=== PATIENT | female | born 1975 | race Caucasian/White ===

== ENCOUNTER 2019-04-13 11:43 | Emergency (ER) | payer OTHER ==
--- NOTE | 2019-04-13 12:19 | ER ---
Nurse's Notes [facility] Name: Kelley Saenz Age: 43 yrs Sex: Female : 1975 Arrival Date: 04/13/2019 Time: 11:47 Bed 9 Private MD: Diagnosis: Muscle spasm of back Presentation: 04/13 11:49 Presenting complaint: Patient states: Pain in R shoulder blade since yesterday, worse ph w/ movement, states , " When you push on it it really hurts." Denies N/V/D or SOB. Transition of care: patient was not received from another setting of care. Onset of symptoms was April 13, 2019. Risk Assessment: Do you want to hurt yourself or someone else? Patient reports no desire to harm self or others. Initial Sepsis Screen: Does the patient meet any 2 criteria? No. Patient's initial sepsis screen is negative. Does the patient have a suspected source of infection? No. Patient's initial sepsis screen is negative. Care prior to arrival: None. 11:49 Method Of Arrival: Ambulatory ph 11:49 Acuity: MARAH 4 ph Triage Assessment: 13:10 General: Appears in no apparent distress. Behavior is calm, cooperative. 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 - Social history:: Smoking status: unknown. - Ebola Screening: : Patient negative for fever greater than or equal to 101.5 degrees Fahrenheit, and additional compatible Ebola Virus Disease symptoms Patient denies exposure to infectious person Patient denies travel to an Ebola-affected area in the 21 days before illness onset No symptoms or risks identified at this time. Screenin:10 Abuse screen: Denies threats or abuse. Denies injuries from another. Nutritional iw screening: No deficits noted. Tuberculosis screening: No symptoms or risk factors identified. Fall Risk None identified. Assessment: 12:50 General: Appears in no apparent distress. Pain: Complains of pain in anterior aspect of iw right shoulder and posterior aspect of right shoulder. Neuro: Level of Consciousness is awake, alert, obeys commands, Oriented to person, place, time, situation. Cardiovascular: Patient's skin is warm and dry. Respiratory: Respiratory effort is even, unlabored. Derm: Skin is intact, is healthy with good turgor. Musculoskeletal: Reports pain in anterior aspect of right shoulder and posterior aspect of right shoulder. Vital Signs: 11:52 BP 133 / 73; Pulse 70; Resp 18; Temp 97.8; Pulse Ox 98% on R/A; Weight 117.93 kg; ph Height 5 ft. 8 in. (172.72 cm); Pain 4/10; 11:52 Body Mass Index 39.53 (117.93 kg, 172.72 cm) ph ED Course: 11:47 Patient arrived in ED. tw3 11:51 Triage completed. ph 11:57 [facility] Hale [facility] pm1 11:57 Jason Smith MD is Attending Physician. pm1 12:22 Carla Amin RN is Primary Nurse. iw 12:50 Arm band placed on. iw 12:50 Patient has correct armband on for positive identification. iw 13:12 No provider procedures requiring assistance completed. Patient did not have IV access iw during this emergency room visit. Administered Medications: 12:49 Drug: SOLU-Medrol 125 mg Route: IM; Site: right deltoid; iw 12:49 Drug: TORadol 60 mg Route: IM; Site: left deltoid; iw Outcome: 12:18 Discharge ordered by MD. pm1 13:12 Discharged to home ambulatory, with family. iw 13:12 Condition: good 13:12 Discharge instructions given to patient, family, Instructed on discharge instructions, follow up and referral plans. medication usage, Demonstrated understanding of instructions, follow-up care, medications, Prescriptions given X 3. 13:13 Patient left the ED. iw Signatures: Carla Amin RN RN Sadaf Knight RN RN Harry Hale NP DIRECTOR OF [employer]COLLEGI[employer]THLET[employer] pm1 Fariba Riddle tw3
--- NOTE | 2019-04-13 12:19 | EDPHYS ---
Physician Documentation [facility] Name: Kelley Saenz Age: 43 yrs Sex: Female : 1975 Arrival Date: 04/13/2019 Time: 11:47 Bed 9 Private MD: ED Physician Jason Smith HPI: 04/13 12:18 This 43 yrs old Female presents to ER via Ambulatory with complaints of Right pm1 sided back pain. 12:18 The patient presents with pain that is acute. The symptoms are located in the right pm1 scapular area. Onset: The symptoms/episode began/occurred yesterday. The pain does not radiate. Associated signs and symptoms: Pertinent negatives: abdominal pain, chest pain, dysuria, fever, nausea, numbness, tingling, shortness of breath. The problem was sustained without known cause. Modifying factors: The patient symptoms are alleviated by with massage yesterday, the patient symptoms are aggravated by movement of right arm. Severity of symptoms: in the emergency department the symptoms are actually worse. The patient has not experienced similar symptoms in the past. The patient has not recently seen a physician. 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 - Social history:: Smoking status: unknown. - Ebola Screening: : Patient negative for fever greater than or equal to 101.5 degrees Fahrenheit, and additional compatible Ebola Virus Disease symptoms Patient denies exposure to infectious person Patient denies travel to an Ebola-affected area in the 21 days before illness onset No symptoms or risks identified at this time. ROS: 12:18 Constitutional: Negative for fever, chills, and weight loss, Eyes: Negative for injury, pm1 pain, redness, and discharge, ENT: Negative for injury, pain, and discharge, Neck: Negative for injury, pain, and swelling, Cardiovascular: Negative for chest pain, palpitations, and edema, Respiratory: Negative for shortness of breath, cough, wheezing, and pleuritic chest pain, Abdomen/GI: Negative for abdominal pain, nausea, vomiting, diarrhea, and constipation, : Negative for injury, bleeding, discharge, and swelling, MS/Extremity: Negative for injury and deformity, Skin: Negative for injury, rash, and discoloration, Neuro: Negative for headache, weakness, numbness, tingling, and seizure. 12:18 Back: Positive for of the right scapular area, pain. Exam: 12:18 Constitutional: This is a well developed, well nourished patient who is awake, alert, pm1 and in no acute distress. Head/Face: Normocephalic, atraumatic. Neck: Trachea midline, no thyromegaly or masses palpated, and no cervical lymphadenopathy. Supple, full range of motion without nuchal rigidity, or vertebral point tenderness. No Meningismus. Chest/axilla: Normal chest wall appearance and motion. Nontender with no deformity. No lesions are appreciated. Cardiovascular: Regular rate and rhythm with a normal S1 and S2. No gallops, murmurs, or rubs. Normal PMI, no JVD. No pulse deficits. Respiratory: Lungs have equal breath sounds bilaterally, clear to auscultation and percussion. No rales, rhonchi or wheezes noted. No increased work of breathing, no retractions or nasal flaring. Abdomen/GI: Soft, non-tender, with normal bowel sounds. No distension or tympany. No guarding or rebound. No evidence of tenderness throughout. 12:18 Skin: Warm, dry with normal turgor. Normal color with no rashes, no lesions, and no evidence of cellulitis. MS/ Extremity: Pulses equal, no cyanosis. Neurovascular intact. Full, normal range of motion. 12:18 Back: pain, of the focal point on right scapular area with palpation and reproduced with movement of right arm towards the back, ROM is normal, painless, normal spinal alignment noted. 12:18 Neuro: Orientation: is normal, Motor: is normal, moves all fours. Vital Signs: 11:52 BP 133 / 73; Pulse 70; Resp 18; Temp 97.8; Pulse Ox 98% on R/A; Weight 117.93 kg; ph Height 5 ft. 8 in. (172.72 cm); Pain 4/10; 11:52 Body Mass Index 39.53 (117.93 kg, 172.72 cm) ph MDM: 12:11 Patient medically screened. pm1 12:16 Data reviewed: vital signs. Data interpreted: Pulse oximetry: on room air is 98 %. pm1 Interpretation: normal. Counseling: I had a detailed discussion with the patient and/or guardian regarding: the historical points, exam findings, and any diagnostic results supporting the discharge/admit diagnosis, the need for outpatient follow up, to return to the emergency department if symptoms worsen or persist or if there are any questions or concerns that arise at home. Administered Medications: 12:49 Drug: SOLU-Medrol 125 mg Route: IM; Site: right deltoid; iw 12:49 Drug: TORadol 60 mg Route: IM; Site: left deltoid; iw Disposition: 04/13/19 12:18 Discharged to Home. Impression: Muscle spasm of back. - Condition is Stable. - Discharge Instructions: Muscle Cramps and Spasms. - Prescriptions for Naprosyn 500 mg Oral Tablet - take 1 tablet by ORAL route 2 times per day take with food; 30 tablet. Cyclobenzaprine 10 mg Oral Tablet - take 1 tablet by ORAL route every 8 hours As needed; 30 tablet. Medrol (Breezy) 4 mg Oral Tablets, Dose Pack - take 1 tablet by ORAL route as directed - follow package instructions; 1 packet. - Medication Reconciliation Form, Thank You Letter, Antibiotic Education, Prescription Opioid Use form. - Follow up: Emergency Department; When: As needed; Reason: Worsening of condition. Follow up: Private Physician; When: 2 - 3 days; Reason: Recheck today's complaints, Continuance of care, Re-evaluation by your physician. - Problem is new. - Symptoms have improved. Addendum: 04/17/2019 20:35 Co-signature as Attending Physician, Jason Smith MD. g s Signatures: Carla Amin, JAMARCUS RN Sadaf Knight RN RN Harry Hale, MANAGER CIVIL MANAGER CIVIL pm1 Jason Smith MD MD Corrections: (The following items were deleted from the chart) 04/13 13:13 12:18 04/13/2019 12:18 Discharged to Home. Impression: Muscle spasm of back. Condition iw is Stable. Forms are Medication Reconciliation Form, Thank You Letter, Antibiotic Education, Prescription Opioid Use. Follow up: Emergency Department; When: As needed; Reason: Worsening of condition. Follow up: Private Physician; When: 2 - 3 days; Reason: Recheck today's complaints, Continuance of care, Re-evaluation by your physician. Problem is new. Symptoms have improved. pm1
[2019-04-13] MEDS ORDERED: METHYLPREDNISOLONE 125 MG INJ ONE (12:55)
[2019-04-13] MEDS ORDERED: KETOROLAC 30 MG/ML INJ ONE (12:55)
[2019-04-13 14:45] VITALS: BP 133/73; TEMP 97.8; O2SAT 98
== END 2019-04-13 13:13 | disposition home or self-care (01) ==
LOC: ER 11:43
DX: M62.830 Muscle spasm of back (principal); Z88.0 Allergy status to penicillin
CPT/HCPCS: 96372; 99283; J2930

== ENCOUNTER 2019-05-06 19:05 | Emergency (ER) | payer OTHER ==
[2019-05-06 20:33] LABS: Absolute Lymphocytes (CBC) 2.9 K/uL (0.7-4.9); Absolute Neutrophil 7.1 K/uL (1.8-8.0); Basophils % 0.9 % (0-1.3); Eosinophils % 2.4 % (0-4.4); Hematocrit 41.4 % (36.0-45.0); Lymphocytes % 25.6 % (15.3-44.8); Monocytes % 9.1 % (3.3-12.3); RBC Red Blood Cell Count 4.63 M/uL (3.86-4.86)
--- NOTE | 2019-05-06 20:38 | RAD REPORT ---
EXAM DESCRIPTION: US - Extremity Venous Uni Ltd - 05/06/2019 7:41 pm CLINICAL HISTORY: Left lower extremity pain and swelling COMPARISON: None. TECHNIQUE: Real-time sonographic evaluation of the left lower extremity deep venous system was perfo rmed. FINDINGS: Normal compressibility, flow augmentation, phasic flow and spontaneous flow are identified in the left lower extremity common femoral, superficial femoral, popliteal and posterior tibial vein s. No intraluminal filling defects seen. IMPRESSION: No DVT in the left lower extremity.
[2019-05-06 20:45] LABS: BUN Blood Urea Nitrogen 9 mg/dL (7-18); Bicarbonate 32 mmol/L (21-32); Glucose Level 84 mg/dL (74-106); Potassium 3.7 mmol/L (3.5-5.1); Sodium Level 141 mmol/L (136-145)
--- NOTE | 2019-05-06 21:06 | EDPHYS ---
Physician Documentation [facility] Name: Kelley Saenz Age: 43 yrs Sex: Female : 1975 Arrival Date: 05/06/2019 Time: 19:09 Bed 13 Private MD: EMELIA Physician Constantin Mendoza HPI: 05/06 19:22 This 43 yrs old Female presents to ER via Ambulatory with complaints of Foot rn swelling calf cramping. 19:22 The patient presents with pain, swelling. The complaints affect the left calf. Onset: rn The symptoms/episode began/occurred 2 week(s) ago. Modifying factors: The symptoms are alleviated by nothing. the symptoms are aggravated by nothing. Severity of symptoms: At their worst the symptoms were mild, in the emergency department the symptoms are unchanged. The patient has not experienced similar symptoms in the past. The patient has been recently seen by a physician:. Reports 2 weeks of left calf cramps, goes ascencion to achilles, no trauma, seen by pcp at start and told was a sprain although no apparent injury, spends a lot of time on her feet at work, only left leg spasms, no change in medication, no risk or hx of DVT. . 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 - Social history:: Smoking status: Patient uses tobacco products, vape. - Ebola Screening: : Patient negative for fever greater than or equal to 101.5 degrees Fahrenheit, and additional compatible Ebola Virus Disease symptoms Patient denies exposure to infectious person Patient denies travel to an Ebola-affected area in the 21 days before illness onset No symptoms or risks identified at this time. - Family history:: not pertinent. - Hospitalizations: : No recent hospitalization is reported. ROS: 19:22 Constitutional: Negative for fever, chills, and weight loss, Eyes: Negative for injury, rn pain, redness, and discharge, Neck: Negative for injury, pain, and swelling, Cardiovascular: Negative for chest pain, palpitations, and edema, Respiratory: Negative for shortness of breath, cough, wheezing, and pleuritic chest pain, Abdomen/GI: Negative for abdominal pain, nausea, vomiting, diarrhea, and constipation, Back: Negative for injury and pain, MS/Extremity: + left calf spasm Skin: Negative for injury, rash, and discoloration, Neuro: Negative for headache, weakness, and seizure. Exam: 19:22 Constitutional: This is a well developed, well nourished patient who is awake, alert, rn and in no acute distress. Respiratory: No increased work of breathing, no retractions or nasal flaring. Speaking full sentences Skin: Warm, dry, and no evidence of cellulitis. MS/ Extremity: Pulses equal, no cyanosis. Neurovascular intact. Full, normal range of motion. Equal circumference. Vital Signs: 19:16 BP 122 / 73; Pulse 85; Resp 17; Temp 98.1(O); Pulse Ox 99% on R/A; Pain 2/10; ed1 20:00 BP 123 / 62; Pulse 74; Resp 16; Pulse Ox 100% on R/A; jb4 21:30 BP 138 / 62; Pulse 74; Resp 16; Pulse Ox 100% on R/A; jb4 MDM: 19:13 Patient medically screened. rn 19:41 Differential diagnosis: tendonitis, lymphedema, venous stasis, arthritis. Data rn reviewed: vital signs, nurses notes, radiologic studies, ultrasound, and as a result, I will. 19:42 ED course: Ultrasound negative for DVT.. rn 21:04 Counseling: I had a detailed discussion with the patient and/or guardian regarding: the rn historical points, exam findings, and any diagnostic results supporting the discharge/admit diagnosis, lab results, radiology results, the need for outpatient follow up, to return to the emergency department if symptoms worsen or persist or if there are any questions or concerns that arise at home. 21:05 ED course: MOst likely nonspecific edema due to being on feet at work, no signs of rn infection, negative u/s, recommend leg elevation and compression stocking, along with pcp f/u. . 05/06 19:21 Order name: CBC with Diff rn 05/06 19:21 Order name: Basic Metabolic Panel; Complete Time: 21: rn 05/06 19:21 Order name: Extremity Venous Uni Ltd US; Complete Time: 21: rn 05/06 19:21 Order name: IV Start; Complete Time: 20: rn 05/06 19:22 Order name: CBC with Automated Diff; Complete Time: 21:04 EDMS Administered Medications: No medications were administered Disposition: 05/06/19 21:05 Discharged to Home. Impression: Edema, unspecified. - Condition is Stable. - Discharge Instructions: Edema, Peripheral Edema. - Medication Reconciliation Form, Thank You Letter, Antibiotic Education, Prescription Opioid Use form. - Follow up: Private Physician; When: As needed; Reason: Recheck today's complaints, Re-evaluation by your physician. - Problem is an ongoing problem. - Symptoms are unchanged. Signatures: Dispatcher [employer] EDMS Constantin Mendoza MD MD rn Riggs, Erika, RN RN ed1 Lex Daly RN RN jb4 Corrections: (The following items were deleted from the chart) 21:39 21:05 05/06/2019 21:05 Discharged to Home. Impression: Edema, unspecified. Condition is jb4 Stable. Forms are Medication Reconciliation Form, Thank You Letter, Antibiotic Education, Prescription Opioid Use. Follow up: Private Physician; When: As needed; Reason: Recheck today's complaints, Re-evaluation by your physician. Problem is an ongoing problem. Symptoms are unchanged. rn
--- NOTE | 2019-05-06 21:06 | ER ---
Nurse's Notes [facility] Name: Kelley Saenz Age: 43 yrs Sex: Female : 1975 Arrival Date: 05/06/2019 Time: 19:09 Bed 13 Private MD: Diagnosis: Edema, unspecified Presentation: 05/06 19:14 Presenting complaint: Patient states: For about 2 weeks now my left foot has been ed1 swelling and I have been having cramps in my calf. Transition of care: patient was not received from another setting of care. Onset of symptoms was April 22, 2019. Risk Assessment: Do you want to hurt yourself or someone else? Patient reports no desire to harm self or others. Initial Sepsis Screen: Does the patient meet any 2 criteria? No. Patient's initial sepsis screen is negative. Does the patient have a suspected source of infection? No. Patient's initial sepsis screen is negative. Care prior to arrival: None. 19:14 Method Of Arrival: Ambulatory ed1 19:14 Acuity: MARAH 3 ed1 Triage Assessment: 19:16 General: Appears in no apparent distress. Behavior is calm, cooperative. Pain: ed1 Complains of pain in left leg Pain currently is 2 out of 10 on a pain scale. Quality of pain is described as crampy. Musculoskeletal: Swelling present in left foot. 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 - Social history:: Smoking status: Patient uses tobacco products, vape. - Ebola Screening: : Patient negative for fever greater than or equal to 101.5 degrees Fahrenheit, and additional compatible Ebola Virus Disease symptoms Patient denies exposure to infectious person Patient denies travel to an Ebola-affected area in the 21 days before illness onset No symptoms or risks identified at this time. - Family history:: not pertinent. - Hospitalizations: : No recent hospitalization is reported. Screenin:20 Abuse screen: Denies threats or abuse. Nutritional screening: No deficits noted. jb4 Tuberculosis screening: No symptoms or risk factors identified. Fall Risk None identified. Assessment: 19:20 General: Appears in no apparent distress. comfortable, Behavior is calm, cooperative, jb4 appropriate for age. Pain: Complains of pain in left leg Pain does not radiate. Pain currently is 4 out of 10 on a pain scale. Quality of pain is described as burning, crampy, Pain began 2 weeks ago Is intermittent. Neuro: Level of Consciousness is awake, alert, obeys commands, Oriented to person, place, time, situation. Cardiovascular: Patient's skin is warm and dry. Respiratory: Airway is patent Respiratory effort is even, unlabored, Respiratory pattern is regular, symmetrical. GI: No signs and/or symptoms were reported involving the gastrointestinal system. : No signs and/or symptoms were reported regarding the genitourinary system. EENT: No signs and/or symptoms were reported regarding the EENT system. Derm: Skin is intact, Skin is pink, warm \T\ dry. Musculoskeletal: Circulation, motion, and sensation intact. Range of motion: intact in all extremities, Reports pain in left calf. 19:28 Reassessment: Pt to Ultrasound. jb4 20:22 Reassessment: Patient appears in no apparent distress at this time. Patient and/or jb4 family updated on plan of care and expected duration. Pain level reassessed. Patient is alert, oriented x 3, equal unlabored respirations, skin warm/dry/pink. 21:30 Reassessment: Patient appears in no apparent distress at this time. Patient and/or jb4 family updated on plan of care and expected duration. Pain level reassessed. Patient is alert, oriented x 3, equal unlabored respirations, skin warm/dry/pink. Vital Signs: 19:16 BP 122 / 73; Pulse 85; Resp 17; Temp 98.1(O); Pulse Ox 99% on R/A; Pain 2/10; ed1 20:00 BP 123 / 62; Pulse 74; Resp 16; Pulse Ox 100% on R/A; jb4 21:30 BP 138 / 62; Pulse 74; Resp 16; Pulse Ox 100% on R/A; jb4 ED Course: 19:09 Patient arrived in ED. es 19:09 Constantin Mendoza MD is Attending Physician. rn 19:11 Lex Daly, RN is Primary Nurse. jb4 19:15 Triage completed. ed1 19:16 Arm band placed on. ed1 19:20 Patient has correct armband on for positive identification. Bed in low position. Call jb4 light in reach. Side rails up X 1. Pulse ox on. NIBP on. 19:20 Missed attempt(s): 22 gauge in right forearm. jb4 19:43 Extremity Venous Uni Ltd US In Process Unspecified. EDMS 20:10 Missed attempt(s): 20 gauge in right antecubital area. Bleeding controlled, band aid jp3 applied, catheter tip intact. 20:15 Initial lab(s) drawn, by me, sent to lab. Inserted saline lock: 22 gauge in left jp3 antecubital area, using aseptic technique. Blood collected. 20:21 CBC with Diff Sent. jp3 20:21 Basic Metabolic Panel Sent. jp3 21:30 No provider procedures requiring assistance completed. IV discontinued, intact, jb4 bleeding controlled. Administered Medications: No medications were administered Outcome: 21:05 Discharge ordered by . rn 21:30 Discharged to home ambulatory, with family. jb4 21:30 Condition: stable 21:30 Discharge instructions given to patient, family, Instructed on discharge instructions, follow up and referral plans. Demonstrated understanding of instructions, follow-up care. 21:39 Patient left the ED. jb4 Signatures: Dispatcher [employer] EDCO Cinthia Sosa Constantin Mendoza MD MD rn Riggs, Erika RN RN ed1 Lex Daly, RN RN jb4 Moises Rene jp3
[2019-05-07 02:45] VITALS: TEMP 98.1
[2019-05-07 02:47] VITALS: BP 123/62; O2SAT 100
== END 2019-05-06 21:39 | disposition home or self-care (01) ==
LOC: ER 19:05
DX: R60.0 Localized edema (principal); E78.5 Hyperlipidemia, unspecified; E55.9 Vitamin D deficiency, unspecified; Z72.0 Tobacco use; Z88.0 Allergy status to penicillin
CPT/HCPCS: 36415; 80048; 85025; 93971; 99284

== ENCOUNTER 2019-06-14 18:28 | Emergency (ER) | payer OTHER ==
--- NOTE | 2019-06-14 21:10 | ER ---
Nurse's Notes [facility] Name: Kelley Saenz Age: 43 yrs Sex: Female : 1975 Arrival Date: 06/14/2019 Time: 18:31 Bed 14 Private MD: Unknown, Unknown Diagnosis: Myalgia;Pain in left leg Presentation: 06/14 18:39 Presenting complaint: Patient states: My left upper leg has been hurting for a month. la1 NSAIDS are not helping. Transition of care: patient was not received from another setting of care. Onset of symptoms was June 14, 2019. Risk Assessment: Do you want to hurt yourself or someone else? Patient reports no desire to harm self or others. Initial Sepsis Screen: Does the patient meet any 2 criteria? No. Patient's initial sepsis screen is negative. Does the patient have a suspected source of infection? No. Patient's initial sepsis screen is negative. Care prior to arrival: None. 18:39 Method Of Arrival: Ambulatory la1 18:39 Acuity: MARAH 4 la1 Triage Assessment: 19:42 General: Appears in no apparent distress. Behavior is calm, cooperative, appropriate wh for age. 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 - Social history:: Smoking status: Patient/guardian denies using tobacco. - Ebola Screening: : No symptoms or risks identified at this time. Screenin:42 Abuse screen: Denies threats or abuse. Denies injuries from another. Nutritional wh screening: No deficits noted. Tuberculosis screening: No symptoms or risk factors identified. Fall Risk None identified. Assessment: 19:43 General: Appears in no apparent distress. Behavior is calm, cooperative, appropriate wh for age. Pain: Complains of pain in left upper thigh Pain does not radiate. Pain currently is 2 out of 10 on a pain scale. at worst was 10 out of 10 on a pain scale. Quality of pain is described as burning, Pain began 1 month ago Aggravated by increased activity. Neuro: Level of Consciousness is awake, alert, obeys commands, Oriented to person, place, time, situation, Appropriate for age. Cardiovascular: Capillary refill < 3 seconds. Respiratory: Airway is patent Respiratory effort is even, unlabored, Respiratory pattern is regular, symmetrical. GI: Abdomen is flat, non-distended. : No signs and/or symptoms were reported regarding the genitourinary system. EENT: No signs and/or symptoms were reported regarding the EENT system. Derm: Skin is intact, is healthy with good turgor, Skin is pink, warm \T\ dry. normal. Musculoskeletal: Range of motion: intact in all extremities. 20:55 Reassessment: Patient appears in no apparent distress at this time. No changes from la1 previously documented assessment. Patient and/or family updated on plan of care and expected duration. Pain level reassessed. 21:18 Reassessment: Patient appears in no apparent distress at this time. Patient and/or ch family updated on plan of care and expected duration. Pain level reassessed. Patient is alert, oriented x 3, equal unlabored respirations, skin warm/dry/pink. Patient states symptoms have not improved. Vital Signs: 18:39 BP 128 / 51; Pulse 92; Resp 18; Temp 97.3; Pulse Ox 92% on R/A; sg 19:45 BP 125 / 81; Pulse 87; Resp 18; Pulse Ox 96% on R/A; wh 20:55 BP 126 / 63; Pulse 85; Resp 16; Pulse Ox 98% on R/A; la1 21:18 BP 123 / 81; Pulse 84; Resp 16; Temp 98.5(O); Pulse Ox 99% on R/A; Pain 4/10; ch ED Course: 18:31 Patient arrived in ED. ag5 18:32 Unknown, Unknown is Private Physician. ag5 18:40 Triage completed. la1 18:40 Arm band placed on right wrist. la1 18:50 [facility] kb 18:50 Jason Smith MD is Attending Physician. kb 19:42 Houston Mays is Primary Nurse. wh 19:43 Patient has correct armband on for positive identification. Fall risk band placed. wh Placed in gown. Bed in low position. Call light in reach. Side rails up X 1. Pulse ox on. NIBP on. 21:07 US Extremity Venous Unilateral Ltd In Process Unspecified. EDMS 21:18 No apparent distress. Resting quietly. ch 21:18 No provider procedures requiring assistance completed. Patient did not have IV access ch during this emergency room visit. Administered Medications: No medications were administered Outcome: 21:09 Discharge ordered by . chikis 21:18 Discharged to home ambulatory, with family. ch 21:18 Condition: stable 21:18 Discharge instructions given to patient, family, Instructed on discharge instructions, follow up and referral plans. no drinking with medication, no driving heavy equipment, medication usage, Demonstrated understanding of instructions, follow-up care, medications, Prescriptions given X 2. 21:19 Patient left the ED. Signatures: Dispatcher [employer] EDNJ Mar Zacarias, ETHYLBENZENE OXIDIZER-C ETHYLBENZENE OXIDIZER-Renetta Saini RN RN ch Gay, Steven, RN RN sg Attema, Lee, RN RN laHouston Joseph Ajare 5
--- NOTE | 2019-06-14 21:11 | EDPHYS ---
Physician Documentation [facility] Name: Kelley Saenz Age: 43 yrs Sex: Female : 1975 Arrival Date: 06/14/2019 Time: 18:31 Bed 14 Private MD: Unknown, Unknown ED Physician Jason Smith HPI: 06/14 20:39 This 43 yrs old Female presents to ER via Ambulatory with complaints of Sharp kb Pain In Left Leg. 20:39 The patient presents with pain, that is acute, tenderness. The complaints affect the kb medial aspect of left thigh. Context: The problem was sustained at an unknown site, resulted from an unknown cause, the patient can fully bear weight, the patient is able to ambulate. Onset: The symptoms/episode began/occurred 1 month(s) ago. Modifying factors: The symptoms are alleviated by nothing. the symptoms are aggravated by movement, weight bearing. Associated signs and symptoms: The patient has no apparent associated signs or symptoms. Treatment prior to arrival includes: no previous treatment. Severity of symptoms: At their worst the symptoms were moderate, in the emergency department the symptoms are unchanged. The patient has not experienced similar symptoms in the past. The patient has not recently seen a physician. 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 - Social history:: Smoking status: Patient/guardian denies using tobacco. - Ebola Screening: : No symptoms or risks identified at this time. ROS: 20:39 Constitutional: Negative for fever, chills, and weight loss, Cardiovascular: Negative kb for chest pain, palpitations, and edema, Respiratory: Negative for shortness of breath, cough, wheezing, and pleuritic chest pain, Abdomen/GI: Negative for abdominal pain, nausea, vomiting, diarrhea, and constipation, : Negative for injury, bleeding, discharge, and swelling, Skin: Negative for injury, rash, and discoloration, Neuro: Negative for headache, weakness, numbness, tingling, and seizure. 20:39 MS/extremity: Positive for pain, tenderness, of the medial aspect of left thigh. Exam: 20:39 Constitutional: This is a well developed, well nourished patient who is awake, alert, kb and in no acute distress. Head/Face: Normocephalic, atraumatic. Neck: Trachea midline, no thyromegaly or masses palpated, and no cervical lymphadenopathy. Supple, full range of motion without nuchal rigidity, or vertebral point tenderness. No Meningismus. Chest/axilla: Normal chest wall appearance and motion. Nontender with no deformity. No lesions are appreciated. Cardiovascular: Regular rate and rhythm with a normal S1 and S2. No gallops, murmurs, or rubs. Normal PMI, no JVD. No pulse deficits. Respiratory: Lungs have equal breath sounds bilaterally, clear to auscultation and percussion. No rales, rhonchi or wheezes noted. No increased work of breathing, no retractions or nasal flaring. Abdomen/GI: Soft, non-tender, with normal bowel sounds. No distension or tympany. No guarding or rebound. No evidence of tenderness throughout. Skin: Warm, dry with normal turgor. Normal color with no rashes, no lesions, and no evidence of cellulitis. MS/ Extremity: Pulses equal, no cyanosis. Neurovascular intact. Full, normal range of motion. Neuro: Awake and alert, GCS 15, oriented to person, place, time, and situation. Cranial nerves II-XII grossly intact. Motor strength 5/5 in all extremities. Sensory grossly intact. Cerebellar exam normal. Normal gait. Vital Signs: 18:39 BP 128 / 51; Pulse 92; Resp 18; Temp 97.3; Pulse Ox 92% on R/A; sg 19:45 BP 125 / 81; Pulse 87; Resp 18; Pulse Ox 96% on R/A; wh 20:55 BP 126 / 63; Pulse 85; Resp 16; Pulse Ox 98% on R/A; la1 21:18 BP 123 / 81; Pulse 84; Resp 16; Temp 98.5(O); Pulse Ox 99% on R/A; Pain 4/10; ch MDM: 18:50 Patient medically screened. kb 20:38 Data reviewed: vital signs, nurses notes. Data interpreted: Pulse oximetry: on room air kb is 96 %. Interpretation: normal. Counseling: I had a detailed discussion with the patient and/or guardian regarding: the historical points, exam findings, and any diagnostic results supporting the discharge/admit diagnosis, radiology results, the need for outpatient follow up, a family practitioner, to return to the emergency department if symptoms worsen or persist or if there are any questions or concerns that arise at home. 06/14 19:08 Order name: US Extremity Venous Unilateral Ltd kb Administered Medications: No medications were administered Disposition: 06/15 07:19 Co-signature as Attending Physician, Jason Smith MD. Disposition: 06/14/19 21:09 Discharged to Home. Impression: Myalgia, Pain in left leg. - Condition is Stable. - Discharge Instructions: Musculoskeletal Pain, Muscle Pain, Adult. - Prescriptions for Cyclobenzaprine 10 mg Oral Tablet - take 1 tablet by ORAL route every 8 hours As needed; 21 tablet. Diclofenac Sodium 75 mg Oral Tablet, Delayed Release (E.C.) - take 1 tablet by ORAL route 2 times per day As needed; 30 tablet. - Medication Reconciliation Form, Thank You Letter, Antibiotic Education, Prescription Opioid Use form. - Follow up: Emergency Department; When: As needed; Reason: Worsening of condition. Follow up: Private Physician; When: 2 - 3 days; Reason: Recheck today's complaints, Continuance of care, Re-evaluation by your physician. Signatures: Dispatcher [employer] EDMS Mar Zacarias, HUGO BEDOYAP-Renetta Saini RN RN ch Attema, Lee, RN RN la Jason Smith MD MD Corrections: (The following items were deleted from the chart) 06/14 21:19 21:09 06/14/2019 21:09 Discharged to Home. Impression: Myalgia; Pain in left leg. ch Condition is Stable. Discharge Instructions: Musculoskeletal Pain, Muscle Pain, Adult. Prescriptions for Cyclobenzaprine 10 mg Oral Tablet - take 1 tablet by ORAL route every 8 hours As needed; 21 tablet, Diclofenac Sodium 75 mg Oral Tablet, Delayed Release (E.C.) - take 1 tablet by ORAL route 2 times per day As needed; 30 tablet. and Forms are Medication Reconciliation Form, Thank You Letter, Antibiotic Education, Prescription Opioid Use. Follow up: Emergency Department; When: As needed; Reason: Worsening of condition. Follow up: Private Physician; When: 2 - 3 days; Reason: Recheck today's complaints, Continuance of care, Re-evaluation by your physician. kb
[2019-06-14 22:33] VITALS: BP 123/81; TEMP 98.5; O2SAT 99
--- NOTE | 2019-06-15 12:25 | RAD REPORT ---
EXAM DESCRIPTION: US - Extremity Venous Uni Ltd - 06/14/2019 9:08 pm CLINICAL HISTORY: PAIN Leg swelling and edema. COMPARISON: Extremity Venous Uni Ltd dated 05/06/2019 FINDINGS: Left lower extremity venous system was interrogated with Doppler technique. Normal flow, c ompressibility and augmentation was noted. There is no DVT present. IMPRESSION: No evidence of left lower extremity deep venous thrombosis.
== END 2019-06-14 21:19 | disposition home or self-care (01) ==
LOC: ER 18:28
DX: M79.10 Myalgia, unspecified site (principal); E78.5 Hyperlipidemia, unspecified; E55.9 Vitamin D deficiency, unspecified; Z88.0 Allergy status to penicillin
CPT/HCPCS: 93971; 99283

== ENCOUNTER 2020-09-26 09:29 | Emergency (ER) | payer OTHER ==
--- NOTE | 2020-09-26 10:40 | ER ---
Nurse's Notes [facility] Name: Kelley Saenz Age: 44 yrs Sex: Female : 1975 Arrival Date: 09/26/2020 Time: 09:30 Bed 15 Private MD: Diagnosis: Pain in right shoulder Presentation: 09/26 09:44 Chief complaint: Patient states: about two weeks ago and tripped, thought she pulled a iw muscle when she tried to catch herself, can hardly move her right shoulder. Coronavirus screen: At this time, the client does not indicate any symptoms associated with coronavirus-19. Ebola Screen: Patient negative for fever greater than or equal to 101.5 degrees Fahrenheit, and additional compatible Ebola Virus Disease symptoms Patient denies exposure to infectious person. Patient denies travel to an Ebola-affected area in the 21 days before illness onset. No symptoms or risks identified at this time. Initial Sepsis Screen: Does the patient meet any 2 criteria? No. Patient's initial sepsis screen is negative. Does the patient have a suspected source of infection? No. Patient's initial sepsis screen is negative. Risk Assessment: Do you want to hurt yourself or someone else? Patient reports no desire to harm self or others. Onset of symptoms was September 11, 2020. 09:44 Method Of Arrival: Ambulatory iw 09:44 Acuity: MARAH 4 iw DERRICK MAN: 10:27 LMP N/A - Uterine ablation ca1 Historical: - Allergies: 09:48 PENICILLINS; iw - Home Meds: 09:48 Vitamin C 1,000 mg oral TbER daily [Active]; pravastatin 40 mg oral tab 1 tab once iw daily [Active]; Zoloft 100 mg Oral tab 1 tab once daily [Active]; metformin 500 mg oral tab 2 times per day [Active]; topiramate 50 mg oral tab 1 tab 2 times per day [Active]; folic acid 800 mcg Oral tab 1 tab once daily [Active]; lisinopril 10 mg Oral tab 1 tab once daily [Active]; - PMHx: 09:48 Hyperlipidemia; vitamin D defficiency; Hypertension; Diabetes - NIDDM; iw - PSHx: 09:48 Tubal ligation; uterine ablation; left shoulder; iw - Immunization history:: Adult Immunizations up to date. - Social history:: Smoking status: Reported history of juuling and/or vaping. Screenin:05 Abuse screen: Denies threats or abuse. Denies injuries from another. Nutritional ca1 screening: No deficits noted. Tuberculosis screening: No symptoms or risk factors identified. Fall Risk None identified. Assessment: 10:05 General: Appears in no apparent distress. comfortable, Behavior is calm, cooperative, ca1 appropriate for age. Pain: Complains of pain in right shoulder Pain does not radiate. Pain currently is 3 out of 10 on a pain scale. at worst was 8 out of 10 on a pain scale. Quality of pain is described as burning, Pain began 2 weeks Aggravated by repositioning. Neuro: Level of Consciousness is awake, alert, obeys commands, Oriented to person, place, time, situation. Derm: Skin is intact, is healthy with good turgor, Skin is pink, warm \T\ dry. Musculoskeletal: Circulation, motion, and sensation intact. Capillary refill < 3 seconds. 10:55 Reassessment: Patient appears in no apparent distress at this time. Patient is alert, ca1 oriented x 3, equal unlabored respirations, skin warm/dry/pink. Vital Signs: 09:44 BP 120 / 71; Pulse 95; Resp 16 S; Temp 97.9; Pulse Ox 98% on R/A; Weight 108.86 kg; iw Height 5 ft. 8 in. (172.72 cm); Pain 8/10; 10:05 BP 122 / 65; Pulse 85; Resp 16 S; Pulse Ox 98% on R/A; ca1 10:55 BP 119 / 63; Pulse 81; Resp 16 S; Pulse Ox 99% on R/A; ca1 09:44 Body Mass Index 36.49 (108.86 kg, 172.72 cm) iw ED Course: 09:30 Patient arrived in ED. bp1 09:41 Prosper Mohamud PA is PHCP. cp 09:41 Yury Kline MD is Attending Physician. cp 09:46 Triage completed. iw 09:48 Arm band placed on. iw 10:02 Kellee Vanegas, RN is Primary Nurse. ca1 10:05 Patient has correct armband on for positive identification. Placed in gown. Bed in low ca1 position. Call light in reach. Side rails up X 1. Pulse ox on. NIBP on. Warm blanket given. 10:05 No provider procedures requiring assistance completed. Patient did not have IV access ca1 during this emergency room visit. 10:06 Prosper Mohamud PA is PHCP. cp 10:06 Yury Kline MD is Attending Physician. cp 10:39 Garrett Tucker MD is Referral Physician. cp 10:55 Shoulder immobilizer applied on right shoulder. ca1 11:04 Shoulder Right (2 View) XRAY In Process Unspecified. EDMS Administered Medications: 10:42 Drug: traMADol 50 mg {Note: rass 0.} Route: PO; ca1 10:50 Follow up: Response: No adverse reaction; Medication administered at discharge. ca1 Outcome: 10:40 Discharge ordered by MD. cp 10:56 Discharged to home ambulatory, with significant other. ca1 10:56 Condition: stable 10:56 Discharge instructions given to patient, Instructed on discharge instructions, follow up and referral plans. no drinking with medication, no driving heavy equipment, medication usage, Demonstrated understanding of instructions, follow-up care, medications, Prescriptions given X 2. 10:58 Patient left the ED. ca1 Signatures: Dispatcher [employer] EDMS Carla Amin RN RN iw Prosper Mohamud PA PA cp Acob, Cheryl, RN RN ca1 Swathi Hernandez bp1
--- NOTE | 2020-09-26 10:40 | EDPHYS ---
Physician Documentation [facility] Name: Kelley Saenz Age: 44 yrs Sex: Female : 1975 Arrival Date: 09/26/2020 Time: 09:30 Bed 15 Private MD: ED Physician Yury Kline HPI: 09/26 10:10 This 44 yrs old Female presents to ER via Ambulatory with complaints of cp Shoulder Pain. 10:10 The patient or guardian complains of pain, that is acute. right shoulder. cp 10:10 Context: Patient reports pain started 2 weeks ago after using right arm to catch cp herself from falling. 10:10 Associated signs and symptoms: Pertinent negatives: chest pain, Numbness in right arm cp and right shoulder tingling, Weakness in right arm and right shoulder. 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 - Uterine ablation ca1 Historical: - Allergies: 09:48 PENICILLINS; iw - Home Meds: 09:48 Vitamin C 1,000 mg oral TbER daily [Active]; pravastatin 40 mg oral tab 1 tab once iw daily [Active]; Zoloft 100 mg Oral tab 1 tab once daily [Active]; metformin 500 mg oral tab 2 times per day [Active]; topiramate 50 mg oral tab 1 tab 2 times per day [Active]; folic acid 800 mcg Oral tab 1 tab once daily [Active]; lisinopril 10 mg Oral tab 1 tab once daily [Active]; - PMHx: 09:48 Hyperlipidemia; vitamin D defficiency; Hypertension; Diabetes - NIDDM; iw - PSHx: 09:48 Tubal ligation; uterine ablation; left shoulder; iw - Immunization history:: Adult Immunizations up to date. - Social history:: Smoking status: Reported history of juuling and/or vaping. ROS: 10:20 Constitutional: Negative for body aches, chills, fever. cp 10:20 Eyes: Negative for injury, pain, redness, and discharge. cp 10:20 Neck: Negative for pain with movement, pain at rest, stiffness, tenderness, bony tenderness. 10:20 Cardiovascular: Negative for chest pain, palpitations. 10:20 Respiratory: Negative for cough, shortness of breath, wheezing. 10:20 Abdomen/GI: Negative for abdominal pain, nausea, vomiting, and diarrhea. 10:20 Back: Negative for pain at rest, pain with movement. 10:20 MS/extremity: Positive for pain, tenderness, of the right shoulder, Negative for decreased range of motion, paresthesias. 10:20 Neuro: Negative for headache, numbness, tingling, weakness. 10:20 All other systems are negative. Exam: 10:25 Constitutional: The patient appears in no acute distress, alert, awake, cp non-diaphoretic, non-toxic, well developed, well nourished. 10:25 Head/Face: Normocephalic, atraumatic. cp 10:25 Neck: C-spine: vertebral tenderness, is not appreciated, crepitus, is not appreciated, ROM/movement: is normal, is supple, without pain, no range of motions limitations. 10:25 Chest/axilla: Inspection: normal, Palpation: is normal, no crepitus, no tenderness. 10:25 Cardiovascular: Rate: normal, Rhythm: regular. 10:25 Respiratory: the patient does not display signs of respiratory distress, Respirations: normal, no use of accessory muscles, no retractions, labored breathing, is not present, Breath sounds: are clear throughout, no decreased breath sounds, no stridor, no wheezing. 10:25 Abdomen/GI: Exam negative for discomfort, distension, guarding, Inspection: abdomen appears normal. 10:25 Back: pain, is absent, ROM is normal. 10:25 Musculoskeletal/extremity: Extremities: grossly normal except: noted in the right shoulder: pain, tenderness, ROM: limited passive range of motion due to pain, in the right shoulder, Perfusion: the extremity is normally perfused throughout, Sensation intact. Vital Signs: 09:44 BP 120 / 71; Pulse 95; Resp 16 S; Temp 97.9; Pulse Ox 98% on R/A; Weight 108.86 kg; iw Height 5 ft. 8 in. (172.72 cm); Pain 8/10; 10:05 BP 122 / 65; Pulse 85; Resp 16 S; Pulse Ox 98% on R/A; ca1 10:55 BP 119 / 63; Pulse 81; Resp 16 S; Pulse Ox 99% on R/A; ca1 09:44 Body Mass Index 36.49 (108.86 kg, 172.72 cm) iw MDM: 10:12 Patient medically screened. cp 10:25 Differential diagnosis: tendonitis, bursitis, fracture, rotator cuff injury. cp 10:38 Data reviewed: vital signs, nurses notes, radiologic studies, plain films. Test cp interpretation: by ED physician or midlevel provider: xrays of right shoulder negative for fracture. Counseling: I had a detailed discussion with the patient and/or guardian regarding: the historical points, exam findings, and any diagnostic results supporting the discharge/admit diagnosis, radiology results, the need for outpatient follow up, a orthopedic surgeon, to return to the emergency department if symptoms worsen or persist or if there are any questions or concerns that arise at home. 09/26 09:49 Order name: Shoulder Right (2 View) XRAY iw 09/26 10:34 Order name: Sling; Complete Time: 20:27 cp Administered Medications: 10:42 Drug: traMADol 50 mg {Note: rass 0.} Route: PO; ca1 10:50 Follow up: Response: No adverse reaction; Medication administered at discharge. ca1 Disposition: 09/27 06:36 Co-signature as Attending Physician, Yury Kline MD I agree with the assessment and kdr plan of care. Disposition: 09/26/20 10:40 Discharged to Home. Impression: Pain in right shoulder. - Condition is Stable. - Discharge Instructions: Shoulder Pain, Shoulder Range of Motion Exercises. - Prescriptions for Diclofenac Sodium 75 mg Oral Tablet Sustained Release - take 1 tablet by ORAL route 2 times per day; 30 tablet. Tramadol 50 mg Oral Tablet - take 1 tablet by ORAL route every 8 hours as needed; 15 tablet. - Medication Reconciliation Form, Thank You Letter, Antibiotic Education, Prescription Opioid Use, Work release form form. - Follow up: Garrett Tucker MD; When: 2 - 3 days; Reason: Recheck today's complaints. - Problem is new. - Symptoms have improved. Signatures: Dispatcher [employer] EDMS Yury Kline MD MD kdr Carla Amin RN RN iw Prosper Mohamud PA PA cp Kellee Vanegas RN RN ca1 Corrections: (The following items were deleted from the chart) 09/26 10:58 10:40 09/26/2020 10:40 Discharged to Home. Impression: Pain in right shoulder. ca1 Condition is Stable. Forms are Medication Reconciliation Form, Thank You Letter, Antibiotic Education, Prescription Opioid Use. Follow up: Dr. Garrett Tucker; When: 2 - 3 days; Reason: Recheck today's complaints. Problem is new. Symptoms have improved. cp
[2020-09-26] MEDS ORDERED: TRAMADOL HCL 50 MG TAB ONE (11:01)
[2020-09-26 11:10] VITALS: TEMP 97.9
[2020-09-26 11:18] VITALS: BP 119/63; O2SAT 99
--- NOTE | 2020-09-26 12:10 | RAD REPORT ---
EXAM DESCRIPTION: Shoulder Right 2 View - 09/26/2020 11:02 am CLINICAL HISTORY: PAIN, fall with shoulder trauma COMPARISON: No comparisons TECHNIQUE: Internal and external rotation views of the right shoulder were obtained. FINDINGS: There is no fracture or dislocation. No AC joint separation. Minimal inferiorly directed spur or protruding bone inferior margin of the acromion at the AC joint. This does not significantly encroach on the acromial humeral joint space. No acute or suspicious findings. IMPRESSION: Negative two-view right shoulder examination for acute finding.
== END 2020-09-26 10:58 | disposition home or self-care (01) ==
LOC: ER 09:29
DX: M25.511 Pain in right shoulder (principal); I10 Essential (primary) hypertension; E78.5 Hyperlipidemia, unspecified; E11.9 Type 2 diabetes mellitus without complications; Z88.0 Allergy status to penicillin; Z87.891 Personal history of nicotine dependence
CPT/HCPCS: 99284

== ENCOUNTER 2024-12-21 15:25 | Emergency (ER) | payer BC ==
--- OUTSIDE RECORDS SUMMARY | 2024-12-21 15:28 | XMS REPORT | Continuity of Care Document ---
Author Name Unknown Address [address] [place] [address] [address] th[address] Address [address] [place] [address] [address] [place] [address] Care Team Providers Care Drawing Kiln Supervisor Name Role Phone [email or web address]_S Attending Clinician Unavailninfa SANCHEZ Attending Clinician Unavailable [email or web address]_S Admitting Clinician Unavailninfa SANCHEZ Admitting Clinician Unavailable Encounters Start Date/Time End Date/Time Encounter Type Admission Type Attending Clinicians Care Facility Care Department Encounter ID Source 2023-09-26 00:00:00 2023-09-26 00:00:00 Outpatient GC_GCBZW_Ka diyala_S [facility] [id number] [facility] 2022-06-12 03:47:00 2022-06-12 03:47:00 Outpatient DANIEL VADILSHAD [facility] [id number] [facility]
--- NOTE | 2024-12-21 17:10 | RAD REPORT ---
Extremity Venous Uni Ltd CLINICAL INDICATION: Female, 49 years old.PAIN TECHNIQUE: Complete duplex sonography of the lower extremity veins was performed of the affected limb . The examination included compression for vein patency, color Doppler imaging and flow augmentation in response to distal compression of the distal external iliac, common femoral, femoral, popliteal, peroneal, tibial and great saphenous veins. [id number]. COMPARISON: No prior exams FINDINGS: Duplex sonography imaging demonstrates all deep veins examined to be fully compressible with spontane ous, phasic and augmented flow in the affected limb. IMPRESSION: No evidence of deep venous thrombosis in the left lower extremity.
--- NOTE | 2024-12-21 17:45 | ER ---
Nurse's Notes [facility] Name: Kelley Saenz Age: 49 yrs Sex: Female : 1975 Arrival Date: 12/21/2024 Time: 15:25 Bed 12 Private MD: Diagnosis: Pain in left leg Presentation: 12/21 16:10 Chief complaint: Patient states: LEFT LEG PAIN SINCE YESTERDAY. Coronavirus screen: db Client denies travel out of the [place] in the last 14 days. At this time, the client does not indicate any symptoms associated with coronavirus-19. Ebola Screen: Patient negative for fever greater than or equal to 101.5 degrees Fahrenheit, and additional compatible Ebola Virus Disease symptoms Patient denies exposure to infectious person. Patient denies travel to an Ebola-affected area in the 21 days before illness onset. No symptoms or risks identified at this time. Initial Sepsis Screen: Does the patient meet any 2 criteria? No. Patient's initial sepsis screen is negative. Does the patient have a suspected source of infection? No. Patient's initial sepsis screen is negative. Risk Assessment: Do you want to hurt yourself or someone else? Patient reports no desire to harm self or others. Onset of symptoms was December 20, 2024. 16:10 Method Of Arrival: Ambulatory db 16:10 Acuity: MARAH 3 db Triage Assessment: 16:10 General: Appears in no apparent distress. comfortable, Behavior is calm, cooperative. db Pain: Complains of pain in left leg. Neuro: Level of Consciousness is awake, alert, obeys commands, Oriented to person, place, time, situation. Historical: - Allergies: 16:10 PENICILLINS; db - PMHx: 16:10 Hyperlipidemia; vitamin D defficiency; Diabetes - NIDDM; Hypertension; db - Immunization history:: Adult Immunizations unknown. - Infectious Disease History:: Denies. - Social history:: Smoking status: . Screenin:30 [facility] ED Fall Risk Assessment (Adult) History of falling in the last 3 months, ko1 including since admission No falls in past 3 months (0 pts) Confusion or Disorientation No (0 pts) Intoxicated or Sedated No (0 pts) Impaired Gait No (0 pts) Mobility Assist Device Used No (0 pt) Altered Elimination No (0 pt) Score/Fall Risk Level 0 - 2 = Low Risk Oriented to surroundings, Maintained a safe environment, Educated pt \T\ family on fall prevention, incl call for assistance when getting out of bed, Assessed \T\ reinforced patient's understanding of fall precautions, Hourly rounding (assess needs \T\ fall precautionary measures) done. Abuse screen: Denies threats or abuse. Denies injuries from another. Nutritional screening: No deficits noted. Tuberculosis screening: No symptoms or risk factors identified. Assessment: 16:30 Pain: Complains of pain in left leg. Musculoskeletal: Reports pain in left leg. ko1 Vital Signs: 16:10 BP 145 / 79; Pulse 91; Resp 18; Temp 97.6; Pulse Ox 95% ; Weight 99.79 kg; Height 5 ft. db 8 in. ; 17:47 BP 138 / 80; Pulse 84; Resp 16; Pulse Ox 97% ; ko1 16:10 Body Mass Index 33.45 (99.79 kg, 172.72 cm) db ED Course: 15:27 Patient arrived in ED. im 15:31 Mar Zacarias FNP-C is PHCP. kb 15:31 Constantin Mendoza MD is Attending Physician. kb 16:10 Arm band placed on Patient placed in an exam room. db 16:12 Triage completed. db 16:16 Niki Deleon, RN is Primary Nurse. ko1 16:30 Patient has correct armband on for positive identification. Allergy band placed. Bed in ko1 low position. Call light in reach. Side rails up X 1. Provided Education on: [place] Door closed. Noise minimized. Lights dimmed. 16:30 No provider procedures requiring assistance completed. Patient did not have IV access ko1 during this emergency room visit. 16:57 US Extremity Venous Unilateral Ltd In Process Unspecified. EDMS Administered Medications: No medications were administered Medication: 16:30 VIS not applicable for this client. ko1 Outcome: 17:45 Discharge ordered by . kb 17:52 Discharged to home ambulatory, with family, ko1 17:52 Condition: stable 17:52 Discharge instructions given to patient, Instructed on discharge instructions, follow up and referral plans. medication usage, Demonstrated understanding of instructions, follow-up care, medications, Prescriptions given X 2, 17:56 Patient left the ED. ko1 Signatures: Dispatcher [employer] EDMS Mar Zacarias FNP-C HONING JOB SETTER-Ckb Niki Deleon, RN RN ko1 Cecilia Hollingsworth, RN RN db America Moore
--- NOTE | 2024-12-21 17:45 | EDPHYS ---
Physician Documentation [facility] Name: Kelley Saenz Age: 49 yrs Sex: Female : 1975 Arrival Date: 12/21/2024 Time: 15:25 Bed 12 Private MD: ED Physician Constantin Mendoza HPI: 12/21 17:47 This 49 yrs old Female presents to ER via Ambulatory with complaints of Leg Pain, Leg kb Swelling. 17:47 Pt is a 49 year old female who presents for pain to medial aspect of left thigh that kb started yesterday. States the pain radiates to the medial aspect of knee. Denies injury or trauma. . Historical: - Allergies: 16:10 PENICILLINS; db - PMHx: 16:10 Hyperlipidemia; vitamin D defficiency; Diabetes - NIDDM; Hypertension; db - Immunization history:: Adult Immunizations unknown. - Infectious Disease History:: Denies. - Social history:: Smoking status: . ROS: 17:46 Constitutional: As per HPI kb Exam: 17:46 Constitutional: This is a well developed, well nourished patient who is awake, alert, kb and in no acute distress. Head/Face: Normocephalic, atraumatic. ENT: Moist Mucous membranes Cardiovascular: Regular rate Respiratory: Respirations even and unlabored. No increased work of breathing. Talking in full sentences Skin: Warm, dry with normal turgor. Normal color. Neuro: Awake and alert, GCS 15, oriented to person, place, time, and situation. 17:46 Musculoskeletal/extremity: Extremities: grossly normal except: noted in the medial aspect of left thigh: pain, tenderness, ROM: intact in all extremities, Circulation is intact in all extremities. Sensation intact. Weight bearing: able to fully bear weight, Vital Signs: 16:10 BP 145 / 79; Pulse 91; Resp 18; Temp 97.6; Pulse Ox 95% ; Weight 99.79 kg; Height 5 ft. db 8 in. ; 17:47 BP 138 / 80; Pulse 84; Resp 16; Pulse Ox 97% ; ko1 16:10 Body Mass Index 33.45 (99.79 kg, 172.72 cm) db MDM: 15:31 Medical Screening Exam initiated kb 17:46 Differential diagnosis: strain, dvt, cellulitis. Data reviewed: vital signs, nurses kb notes. Counseling: I had a detailed discussion with the patient and/or guardian regarding the historical points, exam findings, and any diagnostic results supporting the discharge/admit diagnosis, radiology results, the need for outpatient follow up, a family practitioner, to return to the emergency department if symptoms worsen or persist or if there are any questions or concerns that arise at home. ED course: No erythema, warmth on exam. US negative for DVT. Pulses intact with cap refill less than 2 secs. . 12/21 16:16 Order name: US Extremity Venous Unilateral Ltd; Complete Time: 17:13 kb Administered Medications: No medications were administered Disposition: 12/22 17:21 Co-signature as Attending Physician, Constantin Mendoza MD I reviewed the patient's care rn provided by the Advanced Practice Provider and agree with the diagnosis and treatment plan. Disposition Summary: 12/21/24 17:45 Discharge Ordered Notes: Location: Home kb Condition: Stable kb Diagnosis - Pain in left leg kb Followup: kb - With: Emergency Department - When: As needed - Reason: Worsening of condition Followup: kb - With: Private Physician - When: 2 - 3 days - Reason: Recheck today's complaints, Continuance of care, Re-evaluation by your physician Discharge Instructions: - Discharge Summary Sheet kb - Musculoskeletal Pain kb - Muscle Strain, [id number] kb Forms: - Medication Reconciliation Form kb - Antibiotic Education kb - Prescription Opioid Use kb - Patient Portal Instructions kb - Leadership Thank You Letter kb Prescriptions: - Diclofenac Sodium 75 mg Oral tablet, delayed release (enteric coated) - take 1 tablet ORAL route 2 times per day As needed; 30 tablet; Refills: 0, kb Product Selection Permitted - orphenadrine citrate 100 mg Oral Tablet Sustained Release - take 1 tablet ORAL route 2 times per day As needed; 20 tablet; Refills: 0, kb Product Selection Permitted Signatures: Dispatcher [employer] Mar Matthew, HUGO ORNELAS-Constantin Bynum MD MD rn Benton, Danielle, RN RN db
[2024-12-21 22:21] VITALS: TEMP 97.6
[2024-12-21 22:23] VITALS: BP 138/80; O2SAT 97
== END 2024-12-21 17:56 | disposition home or self-care (01) ==
LOC: ER 15:25
DX: M79.605 Pain in left leg (principal)
CPT/HCPCS: 93971; 99283